=== PATIENT | female | born 1965 | race African-American/Black ===

== ENCOUNTER 2017-03-29 10:51 | Emergency (ER) | payer OTHER ==
[~2017-03-29 10:51] MED LIST: ALBUTEROL17 GM INH; BENZONATATE PO; FLONASE16 GM; LEVAQUIN750 M1 PO; LIPITOR PO; LISINOPRIL10 MG PO; LORAZEPAM0.5 MG PO; LORTAB 5/500 TA1 TA1 PO; MEDROL PO; METFORMIN HCL500 M1 PO; NAPROSYN500 MG PO; ORUDIS75 M1 PO; ULTRAM PO; ZITHROMAX PO; ZOLOFT50 MG PO
[2017-03-29 11:30] LABS: INFLUENZA A NEG (NEG); INFLUENZA B NEG (NEG)
== END 2017-03-29 13:16 | disposition home or self-care (01) ==
LOC: CED 10:51
DX: J06.9 Acute upper respiratory infection, unspecified (principal); J44.9 Chronic obstructive pulmonary disease, unspecified
CPT/HCPCS: 87651; 87804; 99282

== ENCOUNTER 2017-04-25 21:47 | Emergency (ER) | payer OTHER ==
[2017-04-25 23:37] LABS: BASOPHIL# 0.1 X10e3 (0-0.3); BASOPHIL% 0.7 % (0-2.5); EOSINOPHIL# 0.5 X10e3 (0-0.7); EOSINOPHIL% 5.8 % (0.0-7.0); HEMATOCRIT 29.4 % (35.0-45.0); HEMOGLOBIN 9.2 gm/dL (12.0-16.0); LYMPHOCYTE# 3.4 X10e3 (1.0-3.5); LYMPHOCYTE% 43.7 % (17.0-45.0); MEAN CELL VOLUME 72.7 FL (83-96); MEAN CORPUSCULAR HEMOGLOBIN 22.9 PG (28-34); MEAN CORPUSCULAR HGB CONC 31.5 g/dL (30-36); MEAN PLATELET VOLUME 7.3 FL (6.5-11.5); MONOCYTE# 0.6 X10e3 (0-1.0); MONOCYTE% 7.8 % (3.0-12.0); NEUTROPHIL# 3.3 X10e3 (1.5-7.1); PLATELET COUNT 355 X10e3 (140-420); RED BLOOD COUNT 4.04 X10e (3.90-5.30); RED CELL DISTRIBUTION WIDTH 17.9 % (11.0-15.5); WHITE BLOOD COUNT 7.9 X10e3 (4.0-10.5)
[2017-04-25 23:38] LABS: DIFF IND NO
[2017-04-25 23:44] LABS: ALBUMIN SERUM 3.8 g/dL (3.5-5.0); ALKALINE PHOSPHATASE 120 U/L (32-92); ALT (SGPT) 31 U/L (10-40); AST (SGOT) 28 U/L (10-42); BILIRUBIN,TOTAL 0.5 mg/dL (0.2-2.0); BLOOD UREA NITROGEN 13 mg/dL (9-23); BUN/CREATININE RATIO 16.25; CALCIUM SERUM 8.6 mg/dL (8.4-10.2); CARBON DIOXIDE 24 mmol/L (22-31); CHLORIDE 104 mmol/L (100-111); CREATININE SERUM 0.8 mg/dL (0.6-1.4); GLUCOSE FASTING 132 mg/dL (70-110); POTASSIUM 3.7 mmol/L (3.5-5.1); SODIUM 134 mmol/L (135-145)
[2017-04-25 23:50] LABS: BILIRUBIN, DIRECT <0.1 mg/dL (0.0-0.2); BILIRUBIN,INDIRECT 0.4 mg/dL (0.0-0.9)
== END 2017-04-26 02:10 | disposition home or self-care (01) ==
LOC: CED 21:47
PROVIDERS: Emergency Medicine
DX: R60.0 Localized edema (principal); E11.9 Type 2 diabetes mellitus without complications; J44.9 Chronic obstructive pulmonary disease, unspecified; F41.9 Anxiety disorder, unspecified; Z88.2 Allergy status to sulfonamides; Z88.5 Allergy status to narcotic agent
CPT/HCPCS: 36415; 80048; 80076; 83036; 85025; 99283